=== PATIENT | female | born 1975 | race Caucasian/White ===

== ENCOUNTER 2019-06-17 13:20 | Emergency (ER) | payer OTHER, SELFPAY ==
[2019-06-17 13:27] VITALS: BP 116/78; PULSE 66; RESP 16; TEMP 36.3; O2SAT 96; BMI 39.9
[2019-06-17 14:11] LABS: Basophils # 0.1 10^3/uL (0.0-0.1); Basophils % 0.7 %; Eosinophils # 0.1 10^3/uL (0.0-0.8); Eosinophils % 1.8 %; Hematocrit 42.1 % (37.0-47.0); Lymphocytes # 2.1 10^3/uL (0.8-4.8); Lymphocytes % 26.7 %; Mean Corpuscular HGB Conc 30.9 g/dL (30.0-36.0); Mean Corpuscular Hemoglobin 26.1 pg (28.0-34.0); Mean Corpuscular Volume 84.4 fL (81-99); Mean Platelet Volume 11.5 fL (7.4-10.4); Monocytes # 0.4 10^3/uL (0.2-0.9); Neutrophils % 65.5 %; Nucleated Red Blood Cells % 0 %; Platelet Count 375 10^3/cmm (130-400); Red Blood Count 4.99 10^6/uL (4.1-5.3); Red Cell Distribution Width 15.2 % (12.1-15.1); White Blood Count 7.7 10^3/uL (4.0-10.0)
[2019-06-17 14:16] LABS: Alanine Aminotransferase 17 U/L (0-33); Albumin Level 4.1 g/dL (3.5-5.2); Alkaline Phosphatase 84 IU/L (35-105); Anion Gap 17.2 (5-19); Aspartate Amino Transferase 18 U/L (0-32); Blood Urea Nitrogen 16 mg/dL (6-20); Calcium 9.3 mg/dL (8.5-10.5); Carbon Dioxide 24 mmol/L (22-29); Chloride 103 mmol/L (98-107); Globulin 3.5 g/dL (1.3-4.6); Glomerular Filtration Rate 67.7 mL/min (90-130); Glucose 106 mg/dL (65-115); Potassium 4.2 mmol/L (3.5-5.1); Sodium 140 mmol/L (136-145); Total Bilirubin 0.2 mg/dL (0.15-1.2); Total Protein 7.6 g/dL (6.6-8.7); Troponin(5th) Baseline 6 ng/mL (0-10)
--- NOTE | 2019-06-17 14:28 | ED_ITS ---
Entered by Cristofer Guerra LPN, acting as scribe for August Pang DO Jun 17, 2019 13:20 HPI - Chest Pain General: Chief Complaint: Chest Pain Stated Complaint: Chest pain Time Seen by Provider: 06/17/19 14:34 Source: patient Mode of arrival: ambulatory Limitations: no limitations History of Present Illness: HPI narrative: 43 yo female presents with c/o chest pain that started about 1030 this am while she was sitting at a computer, not doing anything strenuous or stressful. She describes it as feeling like her chest was being squeezed. It lasted about two hours, resolving about 1230. She denies any shortness of breath. Did have some numbness in her left arm while the chest pain was present. During exam she continues to feel some left arm tingli ng. She denies any n/v, diaphoresis. She is a nonsmoker, denies drug use. Grandfather of PA at age 38 years. Mother with h/o PA. PCP- Mills. GONZALEZ complaint: chest pain Associated symptoms: Deny dyspnea Review of Systems General: Reports: 10 or more systems reviewed and unremarkable except in HPI and below Card: Reports: chest pain Resp: Denies: shortness of breath Neuro: Reports: numbness in extremities (LUE) and other (tingling LUE) PFSH ED PFSH: Statuses (acute, chronic, etc) shown below reflect problem list status as previously entered and may not be historically accurate Medical History (Updated 06/13/19 @ 16:14 by Mary Martin APN, DONATO) Abnormal uterine bleeding due to disorder of endometrium Endometrial polyp Hypothyroid Ovarian mass, right Surgical History (Updated 06/13/19 @ 16:05 by Mary Martin APN, DONATO) History of adenoidectomy (~1979) History of hysteroscopy (~03/19/19) History of inguinal hernia repair (~1975) left, right History of right salpingo-oophorectomy (03/19/19) hysteroscopy with dilatioon and curettage, performed by Dr. Santa at [facility] History of tonsillectomy (~1979) Social History (Updated 06/13/19 @ 15:38 by Sejal Horan LPN) Smoking and tobacco status: never smoked Alcohol intake: current Additional social history: poorly balanced diet Female Reproductive History: Date of last menstrual period: 04/20/19 Physical Exam Const: COMMON NORMALS: no apparent distress, average body habitus, oriented x3, no limitations, healthy appearing, alert and well nourished HENMT: COMMON NORMALS: normocephalic, head/scalp atraumatic, hearing grossly normal bilaterally, external ears normal, external nose normal and moist oral mucous membranes HEAD & SCALP: normocephalic and atraumatic NOSE: external nose normal EXTERNAL EAR: Yes external ears normal Eye: COMMON NORMALS: PERRL, EOMs intact bilaterally, conjunctivae normal and no scleral icterus CONJUNCTIVA: Yes conjunctivae normal PUPIL: Yes PERRL Neck/C-Spine: COMMON NORMALS: full ROM, no lymphadenopathy, supple, no meningeal signs, thyroid normal and no carotid bruits THYROID: thyroid normal Chest: COMMONS NORMALS: inspection of chest normal and palpation of chest normal Resp: COMMON NORMALS: normal respiratory effort, no retractions, no use of accessory muscles, clear to auscultation bilaterally and percussion normal AUSCULTATION: clear to auscultation bilaterally PERCUSSION: percussion normal Cardio: COMMON NORMALS: regular rate, regular rhythm, S1 normal heart sound, S2 normal heart sound, no gallops, no clicks, no murmurs, no rub and peripheral pulses 2+ throughout RATE: regular rate RHYTHM: regular rhythm HEART SOUNDS: S1 normal and S2 normal PERIPHERAL PULSES: pulses 2+ throughout GI: COMMON NORMALS: normal to inspection, nondistended, normoactive bowel sounds, soft to palpation, non-tender, no hepatosplenomegaly and no masses PALPATION: Yes soft and Yes no hepatosplenomegaly : COMMON NORMALS: Yes external appearance normal Extremity: COMMON NORMALS: normal to inspection, full ROM, normal capillary refill, no clubbing, cyanosis or edema, no calf tenderness and no pedal edema Neuro: COMMON NORMALS: oriented x3 SENSORIUM/ORIENTATION: Yes alert MENINGEAL SIGNS: Yes no meningeal signs Skin: COMMON NORMALS: no rashes or lesions noted, no wounds, skin turgor normal, no jaundice, no petechiae and no mottling GENERAL SKIN EXAM: no rashes or lesions noted and turgor normal Course Vital Signs: Vital signs: Vital Signs Temperature 97.4 F L 06/17/19 13:27 Pulse Rate 67 06/17/19 15:32 Respiratory Rate 15 06/17/19 15:32 Blood Pressure 105/70 06/17/19 15:32 Pulse Oximetry 98 06/17/19 15:32 MDM - Chest Pain Lab Data: Attestation: I reviewed the patient's lab results. Labs: Lab Results 06/17/19 06/17/19 06/17/19 Range/Units 13:40 13:40 13:48 WBC 7.7 (4.0-10.0) 10^3/ uL RBC 4.99 (4.1-5.3) 10^6/u L Hgb 13.0 (11.5-15.3) g/dL Hct 42.1 (37.0-47.0) % MCV 84.4 (81-99) fL MCH 26.1 L (28.0-34.0) pg MCHC 30.9 (30.0-36.0) g/dL RDW 15.2 H (12.1-15.1) % Plt Count 375 (130-400) 10^3/c mm MPV 11.5 H (7.4-10.4) fL Neut % (Auto) 65.5 % Lymph % (Auto) 26.7 % [place] % (Auto) 5.0 % Eos % (Auto) 1.8 % Baso % (Auto) 0.7 % Neut # (Auto) 5.0 (1.8-7.7) 10^3/u L Lymph # (Auto) 2.1 (0.8-4.8) 10^3/u L [place] # (Auto) 0.4 (0.2-0.9) 10^3/u L Eos # (Auto) 0.1 (0.0-0.8) 10^3/u L Baso # (Auto) 0.1 (0.0-0.1) 10^3/u L Nucleated RBC % (a uto) 0 % Nucleated RBCs # 0.0 /100WBC Sodium (136-145) mmol/L Potassium (3.5-5.1) mmol/L Chloride (98-107) mmol/L Carbon Dioxide (22-29) mmol/L Anion Gap (5-19) BUN (6-20) mg/dL Creatinine (0.5-0.9) mg/dL GFR Calculation (90-130) mL/min Glucose (65-115) mg/dL Calcium (8.5-10.5) mg/dL Total Bilirubin (0.15-1.2) mg/dL AST (0-32) U/L ALT (0-33) U/L Alkaline Phosphata se (35-105) IU/L Troponin T Baselin e (0-10) ng/mL Total Protein (6.6-8.7) g/dL Albumin (3.5-5.2) g/dL Globulin (1.3-4.6) g/dL Urine Color Yellow (Yellow) Urine Appearance Clear (CLEAR) Urine pH 5 (5-7) Ur Specific Gravit y 1.025 (1.005-1.030) Urine Protein Neg (Negative) Urine Glucose (UA) Norm (Normal) Urine Ketones Negative (Negative) Urine Occult Blood Neg (Negative) Urine Nitrate Negative (Negative) Urine Bilirubin Neg (NEGATIVE) Urine Urobilinogen Norm (Negative) mg/dL Ur Leukocyte Nathalia ase Negative (Negative) Urine HCG, Qual Negative (Negative) 06/17/19 06/17/19 Range/Units 13:48 13:48 WBC (4.0-10.0) 10^3/ uL RBC (4.1-5.3) 10^6/u L Hgb (11.5-15.3) g/dL Hct (37.0-47.0) % MCV (81-99) fL MCH (28.0-34.0) pg MCHC (30.0-36.0) g/dL RDW (12.1-15.1) % Plt Count (130-400) 10^3/c mm MPV (7.4-10.4) fL Neut % (Auto) % Lymph % (Auto) % [place] % (Auto) % Eos % (Auto) % Baso % (Auto) % Neut # (Auto) (1.8-7.7) 10^3/u L Lymph # (Auto) (0.8-4.8) 10^3/u L [place] # (Auto) (0.2-0.9) 10^3/u L Eos # (Auto) (0.0-0.8) 10^3/u L Baso # (Auto) (0.0-0.1) 10^3/u L Nucleated RBC % (a uto) % Nucleated RBCs # /100WBC Sodium 140 (136-145) mmol/L Potassium 4.2 (3.5-5.1) mmol/L Chloride 103 (98-107) mmol/L Carbon Dioxide 24 (22-29) mmol/L Anion Gap 17.2 (5-19) BUN 16 (6-20) mg/dL Creatinine 0.9 (0.5-0.9) mg/dL GFR Calculation 67.7 L (90-130) mL/min Glucose 106 (65-115) mg/dL Calcium 9.3 (8.5-10.5) mg/dL Total Bilirubin 0.2 (0.15-1.2) mg/dL AST 18 (0-32) U/L ALT 17 (0-33) U/L Alkaline Phosphata se 84 (35-105) IU/L Troponin T Baselin e 6 (0-10) ng/mL Total Protein 7.6 (6.6-8.7) g/dL Albumin 4.1 (3.5-5.2) g/dL Globulin 3.5 (1.3-4.6) g/dL Urine Color (Yellow) Urine Appearance (CLEAR) Urine pH (5-7) Ur Specific Gravit y (1.005-1.030) Urine Protein (Negative) Urine Glucose (UA) (Normal) Urine Ketones (Negative) Urine Occult Blood (Negative) Urine Nitrate (Negative) Urine Bilirubin (NEGATIVE) Urine Urobilinogen (Negative) mg/dL Ur Leukocyte Nathalia ase (Negative) Urine HCG, Qual (Negative) EKG Data^: EKG 1: Attestation: I personally reviewed and interpreted this EKG as follows: Prior EKG tracings: not available for review Computer generated interpretation: Date of Service: 06/17/19 Procedure(s): ECG 12 lead EKG Accession Number(s): [id number] Report Number: [id number] Measurements Intervals [place] Rate: 67 P: 14 [place]: 128 QRS: 20 QRSD: 96 T: 33 QT: 411 QTc: [address] DEPRESSION [0.025+ mV ST DEPRESSION] No previous ECG available for comparison [email or web address] EKG 2: Attestation: I personally reviewed and interpreted this EKG as follows: Computer generated interpretation: Date of Service: 06/17/19 Procedure(s): ECG 12 lead EKG Accession Number(s): [id number] Report Number: [id number] Measurements Intervals [place] Rate: 62 P: 19 [place]: 130 QRS: 22 QRSD: 91 T: 20 QT: 428 QTc: 438 SINUS RHYTHM INCOMPLETE RIGHT BUNDLE BRANCH BLOCK [90+ ms QRS DURATION, TERMINAL R IN V1/V2, 40 40 40 40+ ms S IN I/aVL/V4/V5/V6] No previous ECG available for comparison [email or web address] [id number] Discharge Plan Discharge Prescriptions: No Action tranexamic acid [Lysteda] 650 mg tablet 1,300 mg PO TID Qty: 30 RF: 6 albuterol sulfate [ProAir HFA] 90 mcg/actuation HFA aerosol inhaler 2 puff INHALATION Q6H PRNRF: 0 mometasone [Nasonex] 50 mcg/actuation spray,non-aerosol 1 spray INTRANASAL ONCE PRNRF: 0 nutritional supplement-fiber Liquid PO DAILY RF: 0 cholecalciferol (vitamin D3) 1,000 unit capsule See Rx Instructions PO ONCE RF: 0 levothyroxine [Synthroid] 125 mcg tablet 125 mcg PO ONCE RF: 0 ibuprofen 800 mg tablet 800 mg PO Q8H PRNRF: 0 Coding Level of Care Code ED Head Screen Worker for Chg Fwd Exam Problem Focused The documentation recorded by the Mari hinton Dani Elizabeth, LPN, accurately reflects the service I personally performed and the decisions made by Bird hector Donald P, DO Jun 17, 2019 13:20
[2019-06-17 14:55] LABS: Add Urine Microscopic? NO
[2019-06-17 15:06] LABS: Bilirubin Urine Neg (NEGATIVE); Blood Urine Neg (Negative); Glucose Urine UA Norm (Normal); Ketones Urine Negative (Negative); Nitrate Urine Negative (Negative); Protein Urine Neg (Negative); Specific Gravity, Urine 1.025 (1.005-1.030); Urine Appearance Clear (CLEAR); Urine Color Yellow (Yellow); Urobilinogen Urine Norm (Negative); pH Urine 5 (5-7)
[2019-06-17 15:07] LABS: Leukocyte Esterase Urine Negative (Negative)
[2019-06-17 15:32] VITALS: BP 105/70; PULSE 67; RESP 15; O2SAT 98
--- NOTE | 2019-06-17 15:38 | ECG_ITS ---
Measurements Intervals [place] Rate: 62 P: 19 [place]: 130 QRS: 22 QRSD: 91 T: 20 QT: 428 QTc: 438 SINUS RHYTHM INCOMPLETE RIGHT BUNDLE BRANCH BLOCK [90+ ms QRS DURATION, TERMINAL R IN V1/V2, 40+ ms S IN I/aVL/V4/V5/V6] No previous ECG available for comparison Electronically Signed On 06-17-2019 20:09:15 SANDWICH PEDDLER by Sheila Bosch M.D. [id number]
[2019-06-17 16:29] LABS: Troponin 5 2HR Delta 0 ABS# (0-10)
[2019-06-17 16:49] VITALS: BP 122/88; PULSE 62; RESP 18; O2SAT 96
--- NOTE | 2019-06-17 16:51 | W.ED.CHESTPA ---
HPI - Chest Pain General: Chief Complaint: Chest Pain Stated Complaint: Chest pain Time Seen by Provider: 06/17/19 14:34 Source: patient Mode of arrival: ambulatory Limitations: no limitations Review of Systems General: Reports: 10 or more systems reviewed and unremarkable except in HPI and below PFSH ED PFSH: Statuses (acute, chronic, etc) shown below reflect problem list status as previously entered and may not be historically accurate Medical History (Updated 06/13/19 @ 16:14 by Mary Martin APN, DONATO) Abnormal uterine bleeding due to disorder of endometrium Endometrial polyp Hypothyroid Ovarian mass, right Surgical History (Updated 06/13/19 @ 16:05 by Mary Martin APN, DONATO) History of adenoidectomy (~1979) History of hysteroscopy (~03/19/19) History of inguinal hernia repair (~1975) left, right History of right salpingo-oophorectomy (03/19/19) hysteroscopy with dilatioon and curettage, performed by Dr. Santa at [facility] History of tonsillectomy (~1979) Social History (Updated 06/13/19 @ 15:38 by Sejal Horan LPN) Smoking and tobacco status: never smoked Alcohol intake: current Additional social history: poorly balanced diet Female Reproductive History: Date of last menstrual period: 04/20/19 Course Vital Signs: Vital signs: Vital Signs Temperature 97.4 F L 06/17/19 13:27 Pulse Rate 62 06/17/19 16:49 Respiratory Rate 18 06/17/19 16:49 Blood Pressure 122/88 06/17/19 16:49 Pulse Oximetry 96 06/17/19 16:49 MDM - Chest Pain Lab Data: Labs: Lab Results 06/17/19 06/17/19 06/17/19 Range/Units 13:40 13:40 13:48 WBC 7.7 (4.0-10.0) 10^3/ uL RBC 4.99 (4.1-5.3) 10^6/u L Hgb 13.0 (11.5-15.3) g/dL Hct 42.1 (37.0-47.0) % MCV 84.4 (81-99) fL MCH 26.1 L (28.0-34.0) pg MCHC 30.9 (30.0-36.0) g/dL RDW 15.2 H (12.1-15.1) % Plt Count 375 (130-400) 10^3/c mm MPV 11.5 H (7.4-10.4) fL Neut % (Auto) 65.5 % Lymph % (Auto) 26.7 % [place] % (Auto) 5.0 % Eos % (Auto) 1.8 % Baso % (Auto) 0.7 % Neut # (Auto) 5.0 (1.8-7.7) 10^3/u L Lymph # (Auto) 2.1 (0.8-4.8) 10^3/u L [place] # (Auto) 0.4 (0.2-0.9) 10^3/u L Eos # (Auto) 0.1 (0.0-0.8) 10^3/u L Baso # (Auto) 0.1 (0.0-0.1) 10^3/u L Nucleated RBC % (a uto) 0 % Nucleated RBCs # 0.0 /100WBC Sodium (136-145) mmol/L Potassium (3.5-5.1) mmol/L Chloride (98-107) mmol/L Carbon Dioxide (22-29) mmol/L Anion Gap (5-19) BUN (6-20) mg/dL Creatinine (0.5-0.9) mg/dL GFR Calculation (90-130) mL/min Glucose (65-115) mg/dL Calcium (8.5-10.5) mg/dL Total Bilirubin (0.15-1.2) mg/dL AST (0-32) U/L ALT (0-33) U/L Alkaline Phosphata se (35-105) IU/L Troponin T Baselin e (0-10) ng/mL Troponin T 120 Min [place] (0-10) ng/mL Delta Troponin T (0-10) ABS# Total Protein (6.6-8.7) g/dL Albumin (3.5-5.2) g/dL Globulin (1.3-4.6) g/dL Urine Color Yellow (Yellow) Urine Appearance Clear (CLEAR) Urine pH 5 (5-7) Ur Specific Gravit y 1.025 (1.005-1.030) Urine Protein Neg (Negative) Urine Glucose (UA) Norm (Normal) Urine Ketones Negative (Negative) Urine Occult Blood Neg (Negative) Urine Nitrate Negative (Negative) Urine Bilirubin Neg (NEGATIVE) Urine Urobilinogen Norm (Negative) mg/dL Ur Leukocyte Nathalia ase Negative (Negative) Urine HCG, Qual Negative (Negative) 06/17/19 06/17/19 06/17/19 Range/Units 13:48 13:48 15:49 WBC (4.0-10.0) 10^3/ uL RBC (4.1-5.3) 10^6/u L Hgb (11.5-15.3) g/dL Hct (37.0-47.0) % MCV (81-99) fL MCH (28.0-34.0) pg MCHC (30.0-36.0) g/dL RDW (12.1-15.1) % Plt Count (130-400) 10^3/c mm MPV (7.4-10.4) fL Neut % (Auto) % Lymph % (Auto) % [place] % (Auto) % Eos % (Auto) % Baso % (Auto) % Neut # (Auto) (1.8-7.7) 10^3/u L Lymph # (Auto) (0.8-4.8) 10^3/u L [place] # (Auto) (0.2-0.9) 10^3/u L Eos # (Auto) (0.0-0.8) 10^3/u L Baso # (Auto) (0.0-0.1) 10^3/u L Nucleated RBC % (a uto) % Nucleated RBCs # /100WBC Sodium 140 (136-145) mmol/L Potassium 4.2 (3.5-5.1) mmol/L Chloride 103 (98-107) mmol/L Carbon Dioxide 24 (22-29) mmol/L Anion Gap 17.2 (5-19) BUN 16 (6-20) mg/dL Creatinine 0.9 (0.5-0.9) mg/dL GFR Calculation 67.7 L (90-130) mL/min Glucose 106 (65-115) mg/dL Calcium 9.3 (8.5-10.5) mg/dL Total Bilirubin 0.2 (0.15-1.2) mg/dL AST 18 (0-32) U/L ALT 17 (0-33) U/L Alkaline Phosphata se 84 (35-105) IU/L Troponin T Baselin e 6 (0-10) ng/mL Troponin T 120 Min [place] 6.00 (0-10) ng/mL Delta Troponin T 0 (0-10) ABS# Total Protein 7.6 (6.6-8.7) g/dL Albumin 4.1 (3.5-5.2) g/dL Globulin 3.5 (1.3-4.6) g/dL Urine Color (Yellow) Urine Appearance (CLEAR) Urine pH (5-7) Ur Specific Gravit y (1.005-1.030) Urine Protein (Negative) Urine Glucose (UA) (Normal) Urine Ketones (Negative) Urine Occult Blood (Negative) Urine Nitrate (Negative) Urine Bilirubin (NEGATIVE) Urine Urobilinogen (Negative) mg/dL Ur Leukocyte Nathalia ase (Negative) Urine HCG, Qual (Negative) Discharge Plan Discharge Prescriptions: No Action tranexamic acid [Lysteda] 650 mg tablet 1,300 mg PO TID Qty: 30 RF: 6 albuterol sulfate [ProAir HFA] 90 mcg/actuation HFA aerosol inhaler 2 puff INHALATION Q4H PRN (Reason: Shortness Of Breath) RF: 0 mometasone [Nasonex] 50 mcg/actuation spray,non-aerosol 1 spray INTRANASAL DAILY PRN (Reason: Allergy Symptoms) RF: 0 cholecalciferol (vitamin D3) 1,000 unit capsule See Rx Instructions PO ONCE RF: 0 levothyroxine [Synthroid] 125 mcg tablet 125 mcg PO DAILY RF: 0 ergocalciferol (vitamin D2) 1,250 mcg (50,000 unit) Capsule 50,000 unit PO Q7D RF: 0 Juice Plus 2 tab PO TID RF: 0 Coding Level of Care Code ED Electrician Supervisor Airplane for Chg [place]ole
--- NOTE | 2019-06-17 19:38 | ECG_ITS ---
Measurements Intervals [place] Rate: 67 P: 14 [place]: 128 QRS: 20 QRSD: 96 T: 33 QT: 411 QTc: [address] DEPRESSION [0.025+ mV ST DEPRESSION] No previous ECG available for comparison Electronically Signed On 06-17-2019 20:08:54 HYDROPONICS WORKER by Sheila Bosch M.D. [email or web address]
== END 2019-06-17 17:25 | disposition home or self-care (01) ==
PROVIDERS: Emergency Provider Family Medicine; Family Provider Family Medicine; PCP Family Medicine
DX: R07.9 Chest pain, unspecified (principal); R20.0 Anesthesia of skin; R20.2 Paresthesia of skin; Z82.49 Family history of ischemic heart disease and other diseases of the circulatory system
CPT/HCPCS: 36415; 80053; 81003; 81025; 84484; 85025; 93005; 99283; A9270

== ENCOUNTER 2019-06-18 10:56 | Outpatient (CLI) | payer OTHER, SELFPAY ==
--- NOTE | 2019-06-18 | XR_ITS ---
WS: [id number] PROCEDURE: XR chest 2V* [id number] CLINICAL INFORMATION: OTHER CHEST PAIN COMPARISON: None. FINDINGS: Heart: Cardiomegaly. Lungs: Lungs are clear. No consolidation or pleural fluid. Mild chronic emphysematous changes. No foc al pneumonia. Bones: Normal visualized bony structures. XR/XR chest 2V* [id number] IMPRESSION: No acute chest findings.
== END 2019-06-18 10:57 | disposition home or self-care (01) ==
LOC: RADOUTREAD 13:45
PROVIDERS: Family Provider Family Medicine; PCP Family Medicine; Visit Provider Family Medicine
DX: Z76.89 Persons encountering health services in other specified circumstances (principal)

== ENCOUNTER 2019-07-04 11:57 | Outpatient (CLI) | payer OTHER, SELFPAY ==
--- NOTE | 2019-07-04 12:11 | ECG_ITS ---
NAME OF STUDY: TREADMILL STRESS TEST INDICATION: Chest Pain, PROCEDURE: At the baseline, the patient's blood pressure was 112/80 with a heart rate of 70. The baseline electrocardiogram showed normal sinus rhythm with some nonspecific ST-T changes.. The patient exercised for 5 minutes on a standard Yrn protocol. Patient attained a maximum heart rate of 166 beats per minute( 94 % of the maximum predicted heart rate) with a blood pressure at the peak exercise of 142/80 mm Hg. The EKG at the peak exercise revealed some nonspecific ST-T changes. Patient did not have any chest pain or any significant cardiac arrhythmias with the exercise During the recovery phase, there were no new changes. Blood pressure at the end of the recovery phase was 149/78 mm Hg with a heart rate of 87 per minute. CONCLUSION: 1. Nonspecific EKG changes with the treadmill exercise 2. No exercise-induced chest pain or cardiac arrhythmia 3. Moderately impaired exercise tolerance, attained a maximum of 7.0 METs Possibly no significant ischemia, based on the above findings. Consider myocardial perfusion imaging, if clinically indicated Electronically Signed On 07-05-2019 20:43:35 CRM ADMINISTRATOR by Sheila Bosch M.D. [id number]
[2019-07-04 12:38] VITALS: BMI 40.9
[2019-07-04 12:40] VITALS: BP 149/76; PULSE 88
== END 2019-07-04 11:58 | disposition home or self-care (01) ==
PROVIDERS: Family Provider Family Medicine; PCP Family Medicine; Visit Provider Family Medicine
DX: R07.89 Other chest pain (principal)
CPT/HCPCS: 93017

== ENCOUNTER → 2019-07-08 09:13 | Outpatient (BNVA) | payer OTHER, SELFPAY | PROVIDERS: Family Provider Family Medicine; PCP Family Medicine; Referring Provider Obstetrics & Gynecology; Visit Provider Obstetrics & Gynecology | DX: N93.9 Abnormal uterine and vaginal bleeding, unspecified (principal) | CPT/HCPCS: 76830 ==

== ENCOUNTER → 2019-09-08 08:52 | Outpatient (BNVA) | payer OTHER, SELFPAY | PROVIDERS: Family Provider Family Medicine; PCP Family Medicine; Referring Provider Obstetrics & Gynecology; Visit Provider Obstetrics & Gynecology | DX: D25.9 Leiomyoma of uterus, unspecified (principal) | CPT/HCPCS: 76830 ==

== ENCOUNTER → 2020-01-28 12:44 | Outpatient (BNVA) | payer OTHER, SELFPAY | PROVIDERS: Family Provider Family Medicine; PCP Family Medicine; Visit Provider Internal Medicine | DX: E03.9 Hypothyroidism, unspecified (principal); E66.9 Obesity, unspecified; R73.03 Prediabetes; Z30.41 Encounter for surveillance of contraceptive pills | CPT/HCPCS: 99204 ==

== ENCOUNTER → 2020-03-25 14:39 | Outpatient (BNVA) | payer OTHER, SELFPAY | PROVIDERS: Family Provider Family Medicine; PCP Family Medicine; Visit Provider Internal Medicine | DX: E03.9 Hypothyroidism, unspecified (principal); E55.9 Vitamin D deficiency, unspecified; E66.9 Obesity, unspecified; Z68.38 Body mass index [BMI] 38.0-38.9, adult; R73.03 Prediabetes | CPT/HCPCS: 99214 ==

== ENCOUNTER 2020-07-01 08:15 | Outpatient (CLI) | payer OTHER, SELFPAY ==
--- NOTE | 2020-07-01 08:18 | MM_ITS ---
WS: [id number] BILATERAL SCREENING DIGITAL MAMMOGRAM WITH CAD HISTORY: SCREENING COMPARISON: 03/06/2019 and 09/07/2014 Bilateral CC and MLO views submitted. Computer aided detection analyzed. Breast composition: There are scattered areas of fibroglandular density. No suspicious masses, microc alcifications or architectural distortion. Stable upper outer quadrant LEFT breast calcifications. MM/[place] [id number] IMPRESSION: BI-RADS: 2-Benign FOLLOW UP: 1 Year Follow-up
== END 2020-07-01 08:16 | disposition home or self-care (01) ==
LOC: RADSHAW 08:16
PROVIDERS: PCP Family Medicine; Visit Provider Family Medicine
DX: Z12.31 Encounter for screening mammogram for malignant neoplasm of breast (principal)
CPT/HCPCS: 77067

== ENCOUNTER → 2020-09-13 13:39 | Outpatient (BNVA) | payer OTHER, SELFPAY | PROVIDERS: PCP Family Medicine; Visit Provider Obstetrics & Gynecology | DX: N85.9 Noninflammatory disorder of uterus, unspecified (principal); N93.9 Abnormal uterine and vaginal bleeding, unspecified; E03.9 Hypothyroidism, unspecified | CPT/HCPCS: 83001; 84443 ==

== ENCOUNTER 2021-08-29 14:06 | Outpatient (CLI) | payer OTHER, SELFPAY ==
--- NOTE | 2021-08-29 14:22 | MM_ITS ---
WS: [id number] Bilateral screening 3D tomosynthesis digital mammogram, 08/29/2021 Clinical Data: SCREENING Comparison: 07/01/2020, 03/06/2019, 09/07/2014. Findings: The breast parenchymal pattern shows fibroglandular tissue No spiculated masses or clustered calcific ations are seen. There are no secondary signs of carcinoma. MM/[place] [id number] Impression: 1. Negative bilateral mammogram unchanged. 2. Recommend annual screening mammograms. BIRADS: 1-Negative FOLLOW UP: 1 Year Follow-up The CAD bill checker was used.
== END 2021-08-29 14:07 | disposition home or self-care (01) ==
LOC: RAD 14:07
PROVIDERS: PCP Family Medicine; Visit Provider Family Medicine
DX: Z12.31 Encounter for screening mammogram for malignant neoplasm of breast (principal)
CPT/HCPCS: 77063; 77067

== ENCOUNTER → 2021-10-31 15:40 | Outpatient (BNVA) | payer OTHER, SELFPAY | PROVIDERS: PCP Family Medicine; Visit Provider Obstetrics & Gynecology | DX: N95.1 Menopausal and female climacteric states (principal) | CPT/HCPCS: 83001 ==

== ENCOUNTER 2022-02-23 14:21 | Outpatient (CLI) | payer OTHER, SELFPAY ==
--- NOTE | 2022-02-23 14:15 | US_ITS ---
WS: [email or web address] THYROID ULTRASOUND HISTORY: Hypothyroidism COMPARISON: None available. Right lobe: 0.5 cm x 0.6 cm x 1.9 cm (w x ap x l). Volume: 0.3 cm3. Small shrunken atrophied thyroid. No nodules or mass. No increased vascularity. Left lobe: 0.5 cm x 0.5 cm x 1.3 cm (w x ap x l). Volume: 0.2 cm3. Small shrunken atrophied thyroid. No nodules or mass. No increased vascularity. Isthmus: 0.2 cm. US/US thyroid [id number] IMPRESSION: Atrophied thyroid gland. No suspicious masses.
== END 2022-02-23 14:22 | disposition home or self-care (01) ==
PROVIDERS: PCP Family Medicine; Visit Provider Internal Medicine
DX: E03.9 Hypothyroidism, unspecified (principal)
CPT/HCPCS: 76536

== ENCOUNTER 2022-09-22 14:12 | Outpatient (CLI) | payer OTHER, SELFPAY ==
--- NOTE | 2022-09-22 14:18 | MM_ITS ---
WS: [email or web address] Bilateral screening 3D tomosynthesis digital mammogram, 09/22/2022 Clinical Data: SCREENING Comparison: 08/29/2021, 07/01/2020, 03/06/2019, 09/07/2014 Findings: The breast parenchymal pattern shows fibroglandular tissue. No spiculated masses or clustered calcifi cations are seen. There are no secondary signs of carcinoma. MM/[place] [id number] Impression: 1. Negative bilateral mammogram unchanged. 2. Recommend annual screening mammograms. BIRADS: 1-Negative FOLLOW UP: 1 Year Follow-up The CAD hot box checker was used.
== END 2022-09-22 14:13 | disposition home or self-care (01) ==
PROVIDERS: PCP Family Medicine; Visit Provider Family Medicine
DX: Z12.31 Encounter for screening mammogram for malignant neoplasm of breast (principal)
CPT/HCPCS: 77063; 77067

== ENCOUNTER → 2022-12-07 15:00 | Outpatient (BNVA) | payer OTHER, SELFPAY | PROVIDERS: PCP Family Medicine; Visit Provider Obstetrics & Gynecology | DX: Z01.419 Encounter for gynecological examination (general) (routine) without abnormal findings (principal) | CPT/HCPCS: 83001 ==

== ENCOUNTER 2023-03-05 06:15 | Outpatient (CLI) | payer OTHER, SELFPAY ==
[2023-03-05 07:22] LABS: Estmated Average Glucose 105; Hemoglobin A1C 5.3 % (4.0-6.0)
[2023-03-05 07:29] LABS: Anion Gap 12.4 (5-19); Blood Urea Nitrogen 11 mg/dL (6-20); Calcium 8.5 mg/dL (8.5-10.5); Carbon Dioxide 24 mmol/L (22-29); Chloride 104 mmol/L (98-107); Free T4 Free Thyroxine 1.34 ng/dL (0.82-1.77); Glomerular Filtration Rate 169.7 mL/min (90-130); Glucose 133 mg/dL (65-115); Osmolality Calculated 283 mOsm/kg (285-295); Potassium 4.4 mmol/L (3.5-5.1); Sodium 136 mmol/L (136-145); Thyroid Stimulating Hormone 0.51 uIU/mL (0.27-4.20)
== END 2023-03-05 06:16 | disposition home or self-care (01) ==
LOC: LAB 06:16
PROVIDERS: PCP Family Medicine; Visit Provider Internal Medicine
DX: E03.9 Hypothyroidism, unspecified (principal); E55.9 Vitamin D deficiency, unspecified; E66.9 Obesity, unspecified; R73.03 Prediabetes
CPT/HCPCS: 36415; 80048; 83036; 84439; 84443

== ENCOUNTER 2023-10-04 08:15 | Outpatient (CLI) | payer OTHER, SELFPAY ==
--- NOTE | 2023-10-04 08:20 | MM_ITS ---
WS: [id number] BILATERAL SCREENING DIGITAL TOMOSYNTHESIS MAMMOGRAM WITH CAD HISTORY: SCREENING COMPARISON: 09/22/2022, 08/29/2021, 09/22/2022 Bilateral CC and MLO views with tomosynthesis and synthetic mammography submitted. Computer aided det ection analyzed. Breast composition: The breasts are heterogeneously dense, which may obscure small masses. No suspici ous masses, microcalcifications or architectural distortion. Benign calcifications in each breast. MM/[place] [id number] IMPRESSION: BI-RADS: 2-Benign FOLLOW UP: 1 Year Follow-up
== END 2023-10-04 08:16 | disposition home or self-care (01) ==
LOC: RAD 08:15
PROVIDERS: PCP Family Medicine; Visit Provider Family Medicine
DX: Z12.31 Encounter for screening mammogram for malignant neoplasm of breast (principal); R92.333 Mammographic heterogeneous density, bilateral breasts
CPT/HCPCS: 77063; 77067

== ENCOUNTER → 2023-12-11 11:59 | Outpatient (BNVA) | payer OTHER, SELFPAY | PROVIDERS: PCP Family Medicine; Visit Provider Nurse Practitioner Women's Health | DX: Z12.4 Encounter for screening for malignant neoplasm of cervix (principal) | CPT/HCPCS: 87624 ==

== ENCOUNTER → 2024-05-08 10:57 | Outpatient (BNVA) | payer OTHER, SELFPAY | PROVIDERS: PCP Family Medicine; Visit Provider Obstetrics & Gynecology | DX: D25.9 Leiomyoma of uterus, unspecified (principal) | CPT/HCPCS: 76830 ==

== ENCOUNTER 2024-05-29 09:47 | Day surgery (SDC) | payer OTHER, SELFPAY ==
[2024-05-29] VITALS (11 sets, daily range): BP systolic 95–151; BP diastolic 61–99; PULSE 63–86; RESP 16; TEMP 36.2–36.6; O2SAT 92–98; BMI 42.4
--- NOTE | 2024-05-29 05:56 | P.HP_ITS ---
Same Day Surgery H&P Indication for Procedure/HPI DATE OF PROCEDURE: May 29, 2024 CHIEF COMPLAINT/INDICATIONFOR SURGICAL PROCEDURE: abnormal uterine bleeding PREOP DIAGNOSIS: abnormal uterine bleeding PLANNED PROCEDURE: Operation Date: 05/29/24 12:45 Proposed Procedures p Hysteroscopy Hysteroscopy w/ Endometrial Sampling 20207, N93.9, D25.9, D21 .9(Not Applicable) - Darren Duval MD s Poylpectomy(Not Applicable) - Darren Duval MD 48 y.o. G0 h/o abnormal uterine bleeding now scheduled for hysteroscopy, endometrial sampling, possible endometrial polypectomy; placement of mirena intrauterine device Medications/Allergies* Home Medications Medication Instructions Recorded Confirmed Type albuterol sulfate 90 mcg/actuation 2 puff inhalation Q4H PRN 05/06/19 05/28/24 History aerosol inhaler (ProAir HFA) Shortness Of Breath mometasone 50 mcg/actuation nasal 1 spray intranasal DAILY PRN 05/06/19 05/28/24 History spray (Nasonex) Allergy Symptoms ibuprofen 600 mg tablet 600 mg PO TID PRN Pain 12/15/19 05/28/24 History ferrous gluconate 324 mg (38 mg 324 mg PO DAILY 04/01/24 05/28/24 History iron) tablet therapeutic multivitamin 1 tab PO DAILY 04/01/24 05/28/24 History metformin 500 mg tablet,extended 500 mg PO DAILY 05/28/24 05/28/24 History release 24 hr Allergies/Adverse Reactions Allergy/AdvReac Type Severity Reaction Status Date / Time cat dander Allergy Severe sneezing, Verified 05/28/24 16:11 hives chocolate flavor Allergy Intermediate wheezing Verified 05/28/24 16:11 nut - unspecified Allergy Intermediate wheezing Verified 05/28/24 16:11 Pertinent History/Comorbid Conditions* Medical History (Updated 05/13/24 @ 16:55 by Danilo Santa MD) No pertinent past medical history neghx: htn,dvt/pe PCP: Dr. Limon Hypothyroid Endometrial polyp Ovarian mass, right Abnormal uterine bleeding due to disorder of endometrium Surgical History (Updated 12/11/23 @ 08:39 by Mary Martin APN, WHNP) History of hysteroscopy (~03/19/19) History of right salpingo-oophorectomy (03/19/19) hysteroscopy with dilation and curettage, performed by Dr. Santa at [facility] History of inguinal hernia repair (~1975) left, right History of adenoidectomy (~1979) History of tonsillectomy (~1979) Family History (Updated 07/15/20 @ 13:16 by Moira Bailey) Brain cancer Family/Other maternal uncle Gout Father Heart disease Mother Grandfather maternal Hypothyroidism Family/Other maternal aunt and uncle maternal cousin x 2 Mother Breast cancer Grandmother paternal- diagnosed on her 60's Lung cancer Grandmother maternal Family/Other maternal aunt Bipolar 1 disorder Father unsure if 1 or 2 Endometriosis Family/Other maternal aunt Mother Hypertension Mother Denies family history of Colon cancer Ovarian cancer Diabetes Uterine cancer Stroke Social History Smoking and tobacco/nicotine status: never used tobacco/nicotine Pertinent Exam Findings alert, oriented x 3, clear to auscultation bilaterally and regular rate & rhythm Recommendations Surgery/Procedure today Coding Level of Care Code Acute Code for Chg Fwd Time Spent (min) 20
--- NOTE | 2024-05-29 10:14 | P.HPUD_ITS ---
Surgery/Procedure H&P Update DATE OF PROCEDURE: May 29, 2024 DATE H&P PERFORMED: 05/28/24 H&P UPDATE INFORMATION: I have reviewed H&P completed within last 30 days, I have examined patient prior to procedure and Changes to prior documentation as noted here CHANGES TO PREVIOUS DOCUMENTATION: insertion of mirena intrauterine device PREOP DIAGNOSIS: abnormal uterine bleeding PLANNED PROCEDURE: Operation Date: 05/29/24 11:25 Proposed Procedures p Hysteroscopy Hysteroscopy w/ Endometrial Sampling 57887, N93.9, D25.9, D21.9( Not Applicable) - Darren Duval MD s Poylpectomy(Not Applicable) - Darren Duval MD
--- NOTE | 2024-05-29 10:42 | ANES.PREANE2 ---
Pre-Anesthetic Assessment Height/Weight: Height 1.65 m Weight 115.666 kg Temp Pulse Resp BP Pulse Ox O2 Del Method 97.4 F L 64 16 116/80 96 Room Air 05/29/24 10:30 05/29/24 10:30 05/29/24 10:30 05/29/24 10:30 05/29/24 10:30 05/29/24 10:30 Preop Diagnosis: abnormal uterine bleeding Operation Date: 05/29/24 11:25 Proposed Procedures p Hysteroscopy Hysteroscopy w/ Endometrial Sampling 15548, N93.9, D25.9, D21.9(Not Applicable) - Darren Duval MD s Poylpectomy(Not Applicable) - Darren Duval MD Familial anesthetic complications: none Was Beta [place] taken within 24 hours: N/A Was Clonidine taken within 24 hours: N/A Last intake: Intake Last Liquid Date 05/28/24 Last Liquid Time 20:00 Last Solid Date 05/28/24 Last Solid Time 20:00 Social No alcohol and No tobacco Exam alert and oriented x 3 Airway Submandibular: within normal limits Cervical ROM: within normal limits Mallampati: Class II Dentition: full Pulmonary Asthma (inhalers PRN. DuoNeb ordered in pre-op) CV/HEM None reported None reported Hepatic None reported GI Gastroesophageal Reflux Disease (rare) Metabolic Diabetes Mellitus, Morbid Obesity and Thyroid Disease [facility] None reported Neuropsych None reported Anesthetic Plan ASA status: 3 Anesthesia: Anesthesia Evaluation and General Risk of > 500 ml blood loss (7ml/kg in children): No Medications/Allergies Home Medications Medication Instructions Recorded Confirmed Last Taken Type albuterol sulfate 90 mcg/actuation 2 puff inhalation Q4H PRN 05/06/19 05/28/24 Unknown History aerosol inhaler (ProAir HFA) Shortness Of Breath mometasone 50 mcg/actuation nasal 1 spray intranasal DAILY PRN 05/06/19 05/28/24 Unknown History spray (Nasonex) Allergy Symptoms ibuprofen 600 mg tablet 600 mg PO TID PRN Pain 12/15/19 05/28/24 Unknown History cetirizine 10 mg tablet (Zyrtec) 10 mg PO DAILY #30 tabs 06/16/23 05/28/24 Unknown Rx levothyroxine 125 mcg tablet See Rx Instructions .Route 03/11/24 05/28/24 05/28/24 Rx .COMPLEX #100 tabs ferrous gluconate 324 mg (38 mg 324 mg PO DAILY 04/01/24 05/28/24 05/28/24 History iron) tablet therapeutic multivitamin 1 tab PO DAILY 04/01/24 05/28/24 05/28/24 History metformin 500 mg tablet,extended 500 mg PO DAILY 05/28/24 05/28/24 05/28/24 History release 24 hr Allergies Allergy/AdvReac Type Severity Reaction Status Date / Time cat dander Allergy Severe sneezing, Verified 05/28/24 16:11 hives chocolate flavor Allergy Intermediate wheezing Verified 05/28/24 16:11 nut - unspecified Allergy Intermediate wheezing Verified 05/28/24 16:11 [facility] Anesthesia Medical History No pertinent past medical history neghx: htn,dvt/pe PCP: Dr. Limon Hypothyroid Endometrial polyp Ovarian mass, right Abnormal uterine bleeding due to disorder of endometrium Surgical History History of hysteroscopy (~03/19/19) History of right salpingo-oophorectomy (03/19/19) hysteroscopy with dilation and curettage, performed by Dr. Santa at [facility] History of inguinal hernia repair (~1975) left, right History of adenoidectomy (~1979) History of tonsillectomy (~1979) Family History Grandmother Lung cancer maternal Breast cancer paternal- diagnosed on her 60's Family/Other Lung cancer maternal aunt Endometriosis maternal aunt Hypothyroidism maternal aunt and uncle maternal cousin x 2 Brain cancer maternal uncle Father Gout Bipolar 1 disorder unsure if 1 or 2 Mother Endometriosis Hypothyroidism Hypertension Heart disease Grandfather Heart disease maternal Denies family history of Colon cancer Ovarian cancer Diabetes Uterine cancer Stroke Social History Smoking and tobacco/nicotine status: never used tobacco/nicotine Data Anesthesia Cardiac Studies: No Data to Display
[2024-05-29 10:49] LABS: Glucose Point of Care 94 mg/dL (70-110)
[2024-05-29] MEDS: sodium chloride 0.9% 1,000 ML 30 ML IV (10:51)
[2024-05-29] MEDS: albuterol 2.5 mg/3 mL Neb INHALATION (10:51)
[2024-05-29 10:53] LABS: OR HCG Qualitative Urine Negative (Negative)
--- NOTE | 2024-05-29 12:15 | PM.OP ---
Operative Report Date of procedure: May 29, 2024 Pre-op diagnosis: abnormal uterine bleeding uterine fibroids Post-op diagnosis: same Procedure done: hysteroscopy Endometrial sampling and polypectomy with Myosure Curettage of uterus Placement of mirena intrauterine device Implants: mirena intrauterine device Specimens removed/disposition: endometrial tissue, sent to pathology Surgeon: Darren Duval MD Anesthesia: MAC Estimated blood loss (mL): 0 Complications: none Findings: 2 cm endometrial polyp Minimal endometrial tissue Brief History: 48 y.o. G0 h/o irregular heavy bleeding h/o uterine fibroids Procedure: Informed consent signed. Patient was taken to the operating room. Anesthesia was induced. Patient was placed in dorsolithotomy position, prepped and draped for hysteroscopy. A bivalve speculum was placed in the vagina. The anterior lip of the cervix was grasped with a sharp-toothed tenaculum. The uterus was sounded to 8 cm. The cervix was serially dilated with Hegar dilators. . A hysteroscope was placed into the endometrial cavity. There was a 2 cm endometrial polyp and minimal endometrial tissue. A myosure device was then used to remove the polyp and do endometrial sampling. The hysteroscope was then removed. Endometrial curettage was done with a sharp curette. Endometrial tissue was sent to pathology. The mirena intrauterine device was then prepared, placed into the endometrial cavity and deployed. A 3-4 cm string was left at the cervical os. The sharp-toothed tenaculum was removed. There was no bleeding from the endometrial cavity or cervix. The patient was then placed supine and awakened and taken to the PACU. Postop condition: stable EBL: 0 cc Sponge and instruments counts were normal x 2 Complications: none
[2024-05-29] MEDS: ketorolac 30 mg/mL INJ IVP (13:29)
== END 2024-05-29 13:50 | disposition home or self-care (01) ==
PROVIDERS: Student in an Organized Health Care Education/Training Program; PCP Family Medicine; Visit Provider Obstetrics & Gynecology
PROC: 0UJD8ZZ Inspection of Uterus and Cervix, Via Natural or Artificial Opening Endoscopic (ICD-10-PCS; CPT 58555; principal; 2024-05-29 11:15)
PROC: (CPT 58558; 2024-05-29 11:15)
DX: N93.9 Abnormal uterine and vaginal bleeding, unspecified (principal); J45.909 Unspecified asthma, uncomplicated; E11.9 Type 2 diabetes mellitus without complications; E66.01 Morbid (severe) obesity due to excess calories; Z68.41 Body mass index [BMI] 40.0-44.9, adult; E03.9 Hypothyroidism, unspecified
CPT/HCPCS: 58558; 58300; 36416; 81025; 82962; 88305; A4216; J1100; J1200; J1885; J2250; J2405; J2704; J3010; J7030; J7613

== ENCOUNTER 2024-10-29 09:19 | Outpatient (CLI) | payer OTHER, SELFPAY ==
--- NOTE | 2024-10-29 09:20 | MM_ITS ---
WS: [id number] BILATERAL SCREENING DIGITAL TOMOSYNTHESIS MAMMOGRAM WITH CAD HISTORY: SCREENING COMPARISON: 10/04/2023, 09/22/2022 Bilateral CC and MLO views with tomosynthesis and synthetic mammography submitted. Computer aided detection analyzed. Breast composition: The breasts are heterogeneously dense, which may obscure small masses. No suspicious masses, microcalcifications or architectural distortion. Benign calcifications and asymmetries are stable within each breast. MM/MM scr tomosynthesis [id number] IMPRESSION: BI-RADS: 2 - Benign FOLLOW UP: 1 Year Follow-up
== END 2024-10-29 09:20 | disposition home or self-care (01) ==
LOC: MOBLMAM 09:22
PROVIDERS: PCP Family Medicine; Visit Provider Family Medicine
DX: Z12.31 Encounter for screening mammogram for malignant neoplasm of breast (principal); R92.333 Mammographic heterogeneous density, bilateral breasts; R92.1 Mammographic calcification found on diagnostic imaging of breast; N64.89 Other specified disorders of breast
CPT/HCPCS: 77063; 77067